=== PATIENT | male | born 1965 | race Caucasian/White ===

== ENCOUNTER → 2020-09-22 | Outpatient (CLI) | payer OTHER | LOC: US 09-04 10:00 | DX: R74.8 Abnormal levels of other serum enzymes (principal); Z53.9 Procedure and treatment not carried out, unspecified reason ==

== ENCOUNTER → 2021-02-02 | Outpatient (CLI) | payer OTHER | LOC: EXRD 01-15 10:30 | DX: R74.8 Abnormal levels of other serum enzymes (principal); R93.2 Abnormal findings on diagnostic imaging of liver and biliary tract | CPT/HCPCS: 76705 ==